=== PATIENT | female | born 2005 | race Caucasian/White ===

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

== ENCOUNTER 2023-01-16 01:37 | Emergency (ER) | payer MEDICAID ==
[~2023-01-16] VITALS: Ht 167.6 cm; Wt 70.5 kg
[~2023-01-16 01:37] MED LIST changes: +ALBU8.5H17 IH
[2023-01-16 01:59] VITALS: BP 125/75; PULSE 94; RESP 16; O2SAT 100
[2023-01-16] MEDS ORDERED: ONDA4TAB12 PO (03:24)
[2023-01-16] MEDS ORDERED: OMEP40CA21 PO (03:24)
[2023-01-16] MEDS ORDERED: ondansetron 4mg rapidly disintigrating tab PO ONE (03:25)
[2023-01-16] MEDS ORDERED: mag hydrox/Alum hydrox/simeth 30ml oral suspension PO ONE (03:45)
== END 2023-01-16 04:37 | disposition home or self-care (01) ==
LOC: ER 01:38
DX: F41.9 Anxiety disorder, unspecified (principal); R11.2 Nausea with vomiting, unspecified; Z79.2 Long term (current) use of antibiotics; Z79.899 Other long term (current) drug therapy
CPT/HCPCS: 99283

== ENCOUNTER 2024-07-08 11:15 | Emergency (ER) | payer MEDICAID ==
[~2024-07-08] VITALS: Ht 167.6 cm; Wt 67.3 kg
[~2024-07-08 11:15] MED LIST changes: +ONDA-243 PO
[2024-07-08 11:19] VITALS: BP 129/83; PULSE 116; RESP 18; TEMP 97.8; O2SAT 97
[2024-07-08] MEDS ORDERED: LIDO700A32 TOP (12:03)
[2024-07-08] MEDS: LIDOcaine 5% patch TP ONE (12:25)
[2024-07-08] MEDS: ketorolac trometh 15mg/ml vial 15 MG/ML ML IM ONE (12:26)
== END 2024-07-08 16:38 | disposition home or self-care (01) ==
LOC: ER 11:15
DX: R07.81 Pleurodynia (principal); M54.9 Dorsalgia, unspecified; F41.9 Anxiety disorder, unspecified
CPT/HCPCS: 96372; 99283; J1885